=== PATIENT | female | born 1955 | race Two or more races ===

== ENCOUNTER 2019-09-15 16:55 | Inpatient (IN) | payer MEDICAID ==
[~2019-09-15] VITALS: Ht 165.1 cm; Wt 69.0 kg
--- NOTE | 2019-09-15 17:08 | NUR ---
PT TRANSFER FROM [facility]. PT WITH ABD PAIN, FOUND TO HAVE MULTIPLE ACCESSES ON CT SCAN. 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 PT STATES SHE IS COMFORTABLE AT THIS TIME. VSS AT THIS TIME, PT TO BP, CONT PULSE OX. AWAITING ERMD EVAL AT THIS TIME
[2019-09-15] MEDS ORDERED: SODIUM CHLORIDE FLUSH 10ML SYR IVF ONE (18:30)
--- NOTE | 2019-09-15 18:52 | NUR ---
REPORT FROM RAY ASSUMING CARE OF PT AT THIS TIME.
[2019-09-15 19:08] LABS: ALBUMIN 2.4 g/dL (3.4-5.0); ANION GAP 8 mmol/L (5-15); CALCIUM 8.6 mg/dL (8.5-10.1); CHLORIDE 106 mmol/L (98-107); CREATININE 0.62 mg/dL (0.55-1.02); MEAN CORPUSCULAR HEMOGLOBIN 31.1 pg (27.0-34.8); MEAN CORPUSCULAR HGB CONC 33.3 g/dL (32.4-35.8); MEAN CORPUSCULAR VOLUME 93.3 fL (80-100); MEAN PLATELET VOLUME 8.2 fL (7.4-10.4); PLATELET COUNT 360 x10^3/uL (130-400); RED BLOOD COUNT 4.44 x10^6/uL (3.82-5.3); RED CELL DISTRIBUTION WIDTH 12.9 % (9.6-15.2)
[2019-09-15] MEDS ORDERED: OMNIPAQUE 350 MG/ML, 100ML BOTTLE ONE (19:24)
[2019-09-15 19:26] LABS: MD YES
--- NOTE | 2019-09-15 19:27 | NUR ---
PT BACK FROM CT, RESTING ON PHAMRTUCKER NADN AT THIS TIME.
[2019-09-15 19:32] LABS: <RBC MORPHOLOGY> NORMAL; BAND#(MANUAL) 1.39 x10^3/uL; BANDS%(MANUAL) 12 % (0-7); LYMPH#(MANUAL) 0.58 x10^3/uL (1-3.4); LYMPHS% (MANUAL) 5 % (22-44); MONOS#(MANUAL) 0.46 x10^3/uL (0.3-2.7); MONOS% (MANUAL) 4 % (2-9); SEG#(MANUAL) 9.16 x10^3/uL (1.8-6.8); SEGS% (MANUAL) 79 % (42-75)
[2019-09-15 19:33] LABS: <PLATELET ESTIMATE> ADEQUATE; <PLT MORPHOLOGY> NORMAL PLT MORPH
[2019-09-15] MEDS ORDERED: D5%-0.45% NACL 1,000 ML IV ONE (20:15)
--- NOTE | 2019-09-15 20:28 | NUR ---
REPORT TO OR NURSE, PT AWAITING TRANSFER
[2019-09-15] MEDS ORDERED: MIDAZOLAM 1 MG/ML, 2ML ONE (20:36)
[2019-09-15] MEDS ORDERED: FENTANYL PF 250 MCG/5ML ONE ×2 (20:36→21:30)
--- NOTE | 2019-09-15 20:41 | NUR ---
REPORT TO FLY BUCIO
[2019-09-15] MEDS ORDERED: SUCCINYLCHOLINE 20 MG/ML, 10ML ONE (21:30)
[2019-09-15] MEDS ORDERED: LORazepam 2 MG/ML, 1ML IVPush PRN (21:30)
[2019-09-15] MEDS ORDERED: OXYcodone 5 MG/5 ML ORAL.SOL UDC PO PRN (21:30)
[2019-09-15] MEDS ORDERED: GLYCOPYRROLATE 0.2MG/1ML, 5ML ONE (21:30)
[2019-09-15] MEDS ORDERED: ACETAMINOPHEN 325 MG TABLET PO PRN (21:30)
[2019-09-15] MEDS ORDERED: CEFAZOLIN 1,000 MG ONE (21:30)
[2019-09-15] MEDS ORDERED: NEOSTIGMINE 1 MG/ML, 10ML ONE (21:30)
[2019-09-15] MEDS ORDERED: PROMETHAZINE 25 MG SUPP PR PRN (21:30)
[2019-09-15] MEDS ORDERED: PROMETHAZINE 25 MG/ML, 1ML IV PRN (21:30)
[2019-09-15] MEDS ORDERED: PROPOFOL 10 MG/ML, 20ML ONE (21:30)
[2019-09-15] MEDS ORDERED: ONDANSETRON ODT 8 MG PO PRN (21:30)
[2019-09-15] MEDS ORDERED: ONDANSETRON 2MG/ML, 2ML IV PRN (21:30)
[2019-09-15] MEDS ORDERED: ONDANSETRON 2MG/ML, 2ML ONE (21:30)
[2019-09-15] MEDS ORDERED: DEXAMETHASONE 4 MG/ML, 1ML ONE (21:30)
[2019-09-15] MEDS ORDERED: ROCURONIUM 10MG/ML,5ML ONE (21:30)
[2019-09-15] MEDS ORDERED: ALBUTEROL/IPRATROPIUM 2.5MG/0.5MG, 3 ML NPPB PRN (21:30)
[2019-09-15] MEDS ORDERED: SUGAMMADEX 200 MG/2 ML IVPush ONE (22:32)
[2019-09-15] MEDS ORDERED: FENTANYL PF 100 MCG/2ML ONE (23:00)
[2019-09-15] MEDS ORDERED: HYDROmorphone 1 MG/ML, 1ML INJ ONE ×2 (23:00→23:32)
[2019-09-15] MEDS ORDERED: LABETALOL 5MG/ML, 20ML IVPush PRN (23:00)
[2019-09-15] MEDS ORDERED: OXYcodone 5 MG/5 ML ORAL.SOL UDC ONE (23:00)
[2019-09-15] MEDS ORDERED: PROMETHAZINE 25 MG/ML, 1ML IM PRN (23:00)
[2019-09-15] MEDS ORDERED: ENALAPRILAT 1.25 MG/ML, 2ML IVPush PRN (23:00)
[2019-09-15] MEDS ORDERED: ONDANSETRON 2MG/ML, 2ML IVPush PRN (23:00)
[2019-09-15] MEDS: FENTANYL PF 100 MCG/2ML IV PRN ×2 (23:08→23:13)
[2019-09-15] MEDS: HYDROmorphone 2 MG/ML, 1ML IVPush PRN ×3 (23:09→23:38)
[2019-09-16] VITALS: BP 89/54
[2019-09-16] MEDS: D5%-0.45NACL+KCL 20MEQ 1,000 ML IV SCH ×3 (01:13→20:40)
[2019-09-16 04:15] VITALS: BP 101/64
[2019-09-16 06:42] LABS: MEAN CORPUSCULAR HEMOGLOBIN 31.2 pg (27.0-34.8); MEAN CORPUSCULAR HGB CONC 33.2 g/dL (32.4-35.8); MEAN CORPUSCULAR VOLUME 93.9 fL (80-100); PLATELET COUNT 330 x10^3/uL (130-400); RED BLOOD COUNT 3.55 x10^6/uL (3.82-5.3); RED CELL DISTRIBUTION WIDTH 12.5 % (9.6-15.2)
[2019-09-16 06:48] LABS: ANION GAP 2 mmol/L (5-15); CALCIUM 7.8 mg/dL (8.5-10.1); CHLORIDE 107 mmol/L (98-107); CREATININE 0.68 mg/dL (0.55-1.02)
[2019-09-16 06:55] VITALS: BP 92/59
[2019-09-16 07:42] LABS: MD YES
[2019-09-16 07:50] LABS: BANDS%(MANUAL) 20 % (0-7); LYMPH#(MANUAL) 0.33 x10^3/uL (1-3.4); LYMPHS% (MANUAL) 2 % (22-44); METAMYELOCYTES# (MANUAL) 0.17 x10^3/uL (0-0); METAMYELOCYTES% (MANUAL) 1 % (0-1); MONOS#(MANUAL) 0.33 x10^3/uL (0.3-2.7); MONOS% (MANUAL) 2 % (2-9); SEG#(MANUAL) 12.38 x10^3/uL (1.8-6.8); SEGS% (MANUAL) 75 % (42-75)
[2019-09-16 07:51] LABS: TOXIC GRAN 1+
[2019-09-16 07:52] LABS: <PLATELET ESTIMATE> ADEQUATE; <PLT MORPHOLOGY> NORMAL PLT MORPH; <RBC MORPHOLOGY> NORMAL
[2019-09-16 12:26] VITALS: BP 93/60
[2019-09-16 19:51] VITALS: BP 82/47
[2019-09-17 01:13] VITALS: BP 93/57
[2019-09-17] MEDS: D5%-0.45NACL+KCL 20MEQ 1,000 ML IV SCH ×3 (03:31→20:54)
[2019-09-17 05:42] LABS: BASOPHILS % (AUTO) 0 % (0-1); EOSINOPHILS # (AUTO) 0.03 x10^3/uL (0-0.4); EOSINOPHILS % (AUTO) 0 % (1-7); LYMPHOCYTES # (AUTO) 0.85 x10^3/uL (1-3.4); LYMPHOCYTES % (AUTO) 6 % (22-44); MD NO; MEAN CORPUSCULAR HEMOGLOBIN 31.3 pg (27.0-34.8); MEAN CORPUSCULAR HGB CONC 32.8 g/dL (32.4-35.8); MEAN CORPUSCULAR VOLUME 95.2 fL (80-100); MONOCYTES # (AUTO) 0.58 x10^3/uL (0.2-0.8); MONOCYTES % (AUTO) 4 % (2-9); NEUTROPHILS # (AUTO) 13.23 x10^3/uL (1.8-6.8); NEUTROPHILS % (AUTO) 90 % (42-75); PLATELET COUNT 310 x10^3/uL (130-400); RED BLOOD COUNT 3.04 x10^6/uL (3.82-5.3); RED CELL DISTRIBUTION WIDTH 12.7 % (9.6-15.2)
[2019-09-17 07:45] VITALS: BP 87/57
[2019-09-17] MEDS: PIPERACILLIN/TAZO/PMX 3.375GM 50 ML IV SCH ×3 (11:50→23:51)
[2019-09-17 14:00] VITALS: BP 91/55
[2019-09-17] MEDS: morphine SULFATE 10 MG/ML, 1ML IVPush PRN ×3 (15:13→23:48)
[2019-09-17 20:58] VITALS: BP 97/61
[2019-09-18 03:22] VITALS: BP 82/54
[2019-09-18] MEDS: D5%-0.45NACL+KCL 20MEQ 1,000 ML IV SCH ×3 (03:57→19:40)
[2019-09-18] MEDS: PIPERACILLIN/TAZO/PMX 3.375GM 50 ML IV SCH ×4 (05:50→23:49)
[2019-09-18] MEDS: morphine SULFATE 10 MG/ML, 1ML IVPush PRN ×5 (05:50→22:55)
[2019-09-18 07:23] VITALS: BP 85/53
[2019-09-18 12:45] VITALS: BP 93/63
[2019-09-18 21:36] VITALS: BP 98/63
[2019-09-19 00:30] VITALS: BP 91/59
[2019-09-19] MEDS: D5%-0.45NACL+KCL 20MEQ 1,000 ML IV SCH ×2 (03:41→16:26)
[2019-09-19 05:09] LABS: BASOPHILS # (AUTO) 0.01 x10^3/uL (0-0.1); BASOPHILS % (AUTO) 0 % (0-1); EOSINOPHILS # (AUTO) 0.49 x10^3/uL (0-0.4); EOSINOPHILS % (AUTO) 4 % (1-7); LYMPHOCYTES # (AUTO) 1.03 x10^3/uL (1-3.4); LYMPHOCYTES % (AUTO) 8 % (22-44); MD NO; MEAN CORPUSCULAR HGB CONC 33.2 g/dL (32.4-35.8); MEAN CORPUSCULAR VOLUME 93.3 fL (80-100); MEAN PLATELET VOLUME 7.7 fL (7.4-10.4); MONOCYTES # (AUTO) 0.98 x10^3/uL (0.2-0.8); MONOCYTES % (AUTO) 8 % (2-9); NEUTROPHILS # (AUTO) 10.45 x10^3/uL (1.8-6.8); NEUTROPHILS % (AUTO) 81 % (42-75); PLATELET COUNT 367 x10^3/uL (130-400); RED BLOOD COUNT 3.57 x10^6/uL (3.82-5.3); RED CELL DISTRIBUTION WIDTH 12.8 % (9.6-15.2)
[2019-09-19] MEDS: morphine SULFATE 10 MG/ML, 1ML IVPush PRN ×3 (05:14→21:46)
[2019-09-19 05:20] LABS: ANION GAP 4 mmol/L (5-15); CALCIUM 8.7 mg/dL (8.5-10.1); CHLORIDE 103 mmol/L (98-107)
[2019-09-19 05:21] LABS: CREATININE 0.52 mg/dL (0.55-1.02)
[2019-09-19] MEDS: PIPERACILLIN/TAZO/PMX 3.375GM 50 ML IV SCH ×3 (05:43→18:07)
[2019-09-19] MEDS: ENOXAPARIN 40 MG/0.4 ML SQ SCH (06:41)
[2019-09-19 06:52] VITALS: BP 106/65
[2019-09-19 13:14] VITALS: BP 105/68
[2019-09-19 18:38] VITALS: BP 94/65
[2019-09-19] MEDS ORDERED: D5%-0.45NACL+KCL 20MEQ 1,000 ML IV SCH (22:43)
[2019-09-20] MEDS: PIPERACILLIN/TAZO/PMX 3.375GM 50 ML IV SCH ×4 (00:20→18:30)
[2019-09-20 01:45] VITALS: BP 102/65
[2019-09-20] MEDS: morphine SULFATE 10 MG/ML, 1ML IVPush PRN ×3 (04:26→20:39)
[2019-09-20 05:14] LABS: BASOPHILS % (AUTO) 0 % (0-1); EOSINOPHILS # (AUTO) 0.37 x10^3/uL (0-0.4); EOSINOPHILS % (AUTO) 3 % (1-7); LYMPHOCYTES # (AUTO) 0.99 x10^3/uL (1-3.4); LYMPHOCYTES % (AUTO) 8 % (22-44); MD NO; MEAN CORPUSCULAR HGB CONC 33.2 g/dL (32.4-35.8); MEAN CORPUSCULAR VOLUME 93.2 fL (80-100); MEAN PLATELET VOLUME 7.7 fL (7.4-10.4); MONOCYTES # (AUTO) 1.15 x10^3/uL (0.2-0.8); MONOCYTES % (AUTO) 9 % (2-9); NEUTROPHILS # (AUTO) 9.86 x10^3/uL (1.8-6.8); NEUTROPHILS % (AUTO) 80 % (42-75); PLATELET COUNT 387 x10^3/uL (130-400); RED BLOOD COUNT 3.84 x10^6/uL (3.82-5.3); RED CELL DISTRIBUTION WIDTH 12.6 % (9.6-15.2)
[2019-09-20 05:22] LABS: CHLORIDE 102 mmol/L (98-107)
[2019-09-20 05:26] LABS: ANION GAP 7 mmol/L (5-15); CALCIUM 8.7 mg/dL (8.5-10.1); CREATININE 0.61 mg/dL (0.55-1.02)
[2019-09-20] MEDS: D5%-0.45NACL+KCL 20MEQ 1,000 ML IV SCH ×2 (06:16→20:39)
[2019-09-20] MEDS: ENOXAPARIN 40 MG/0.4 ML SQ SCH (06:17)
[2019-09-20 07:07] VITALS: BP 98/64
[2019-09-20 14:41] VITALS: BP 107/71
[2019-09-20 18:42] VITALS: BP 115/75
[2019-09-21] MEDS: PIPERACILLIN/TAZO/PMX 3.375GM 50 ML IV SCH ×5 (00:15→23:49)
[2019-09-21 00:47] VITALS: BP 111/60
[2019-09-21] MEDS: morphine SULFATE 10 MG/ML, 1ML IVPush PRN ×6 (03:22→22:59)
[2019-09-21] MEDS: ENOXAPARIN 40 MG/0.4 ML SQ SCH (06:03)
[2019-09-21 07:16] VITALS: BP 95/53
[2019-09-21 13:14] VITALS: BP 101/66
[2019-09-21 18:37] VITALS: BP 101/65
[2019-09-22 01:31] VITALS: BP 102/62
[2019-09-22] MEDS: morphine SULFATE 10 MG/ML, 1ML IVPush PRN ×3 (04:30→08:51)
[2019-09-22 05:26] LABS: BASOPHILS # (AUTO) 0.02 x10^3/uL (0-0.1); BASOPHILS % (AUTO) 0 % (0-1); EOSINOPHILS # (AUTO) 0.28 x10^3/uL (0-0.4); EOSINOPHILS % (AUTO) 3 % (1-7); LYMPHOCYTES # (AUTO) 1.17 x10^3/uL (1-3.4); LYMPHOCYTES % (AUTO) 11 % (22-44); MD NO; MEAN CORPUSCULAR HEMOGLOBIN 30.7 pg (27.0-34.8); MEAN CORPUSCULAR VOLUME 92.9 fL (80-100); MEAN PLATELET VOLUME 7.8 fL (7.4-10.4); MONOCYTES # (AUTO) 0.82 x10^3/uL (0.2-0.8); MONOCYTES % (AUTO) 8 % (2-9); NEUTROPHILS # (AUTO) 8.15 x10^3/uL (1.8-6.8); NEUTROPHILS % (AUTO) 78 % (42-75); PLATELET COUNT 388 x10^3/uL (130-400); RED BLOOD COUNT 3.58 x10^6/uL (3.82-5.3); RED CELL DISTRIBUTION WIDTH 12.7 % (9.6-15.2)
[2019-09-22] MEDS: ENOXAPARIN 40 MG/0.4 ML SQ SCH (06:14)
[2019-09-22] MEDS: PIPERACILLIN/TAZO/PMX 3.375GM 50 ML IV SCH ×3 (06:14→18:52)
[2019-09-22 07:14] VITALS: BP 103/67
[2019-09-22 13:57] VITALS: BP 94/63
[2019-09-22 19:04] VITALS: BP 111/67
[2019-09-23 01:09] VITALS: BP 97/60
[2019-09-23] MEDS: PIPERACILLIN/TAZO/PMX 3.375GM 50 ML IV SCH ×4 (01:14→18:38)
[2019-09-23 06:39] VITALS: BP 104/66
[2019-09-23] MEDS: ENOXAPARIN 40 MG/0.4 ML SQ SCH (06:50)
[2019-09-23 12:24] VITALS: BP 93/57
[2019-09-23] MEDS: morphine SULFATE 10 MG/ML, 1ML IVPush PRN (18:37)
[2019-09-23 20:30] VITALS: BP 107/70
[2019-09-24] MEDS: PIPERACILLIN/TAZO/PMX 3.375GM 50 ML IV SCH ×4 (01:30→18:32)
[2019-09-24 01:44] VITALS: BP 97/65
[2019-09-24 06:40] VITALS: BP 104/55
[2019-09-24] MEDS: ENOXAPARIN 40 MG/0.4 ML SQ SCH (06:54)
[2019-09-24 13:15] VITALS: BP 94/49
[2019-09-24 20:37] VITALS: BP 89/54
[2019-09-25] MEDS: PIPERACILLIN/TAZO/PMX 3.375GM 50 ML IV SCH ×4 (01:05→19:48)
[2019-09-25 02:14] VITALS: BP 94/58
[2019-09-25 06:43] VITALS: BP 95/58
[2019-09-25] MEDS: ENOXAPARIN 40 MG/0.4 ML SQ SCH (06:49)
[2019-09-25 13:24] VITALS: BP 91/54
[2019-09-25 18:57] VITALS: BP 91/57
[2019-09-26 00:53] VITALS: BP 90/56
[2019-09-26] MEDS: ACETAMINOPHEN 325 MG TABLET PO PRN ×4 (00:57→23:49)
[2019-09-26] MEDS: PIPERACILLIN/TAZO/PMX 3.375GM 50 ML IV SCH ×2 (01:33→07:36)
[2019-09-26] MEDS: ENOXAPARIN 40 MG/0.4 ML SQ SCH (06:08)
[2019-09-26 07:02] VITALS: BP 90/51
[2019-09-26] MEDS: morphine SULFATE 10 MG/ML, 1ML IVPush PRN (10:47)
[2019-09-26 13:29] VITALS: BP 88/45
[2019-09-26 18:21] VITALS: BP 97/51
[2019-09-27 01:22] VITALS: BP 97/62
[2019-09-27] MEDS: ACETAMINOPHEN 325 MG TABLET PO PRN (03:57)
[2019-09-27] MEDS: ENOXAPARIN 40 MG/0.4 ML SQ SCH (05:53)
[2019-09-27 07:44] VITALS: BP 100/64
[2019-09-27] MEDS ORDERED: OXYC-306 PO (11:44)
== END 2019-09-27 16:25 | disposition home or self-care (01) | DRG 710 ==
LOC: EDSEX 16:55 → ED 20:00 → EDIP 20:05 → ED 20:36 → 4NE 09-16 00:05
PROVIDERS: ADMIT Surgery; ATTEND Family Medicine
PROC: 0D1N0Z4 Bypass Sigmoid Colon to Cutaneous, Open Approach (ICD-10-PCS; 2019-09-15)
PROC: 0DBN0ZZ Excision of Sigmoid Colon, Open Approach (ICD-10-PCS; principal; 2019-09-15 20:30)
DX: A41.9 Sepsis, unspecified organism (principal); K65.1 Peritoneal abscess; K56.52 Intestinal adhesions [bands] with complete obstruction; F17.210 Nicotine dependence, cigarettes, uncomplicated; K56.7 Ileus, unspecified; K57.20 Diverticulitis of large intestine with perforation and abscess without bleeding
CPT/HCPCS: 36415; 74177; 80048; 82040; 82565; 85025; 87040; 87070; 87075; 87205; 88309; 93005; 99285; G0378; J0690; J1100; J1170; J1650; J2250; J2270; J2405; J2543; J2704; J2710; J3010; Q9967; J0330; J3480